=== PATIENT | female | born 1950 | race Caucasian/White ===

== ENCOUNTER 2018-12-09 11:54 | Inpatient (IN) ==
--- NOTE | 2018-12-09 14:11 | Diag Imaging Result Doc PS360 ---
EXAM: CHEST-2 VIEWS INDICATION: SOB TECHNIQUE: 2 views COMPARISON: 12/06/2018 FINDINGS: A calcified granuloma and mild stable scarring involving the lingula is unchanged. The lungs are clear, otherwise. There is no discrete pleural fluid collection or pneumothorax. The cardiomediastinal silhouette and central vasculature are grossly unremarkable. IMPRESSION: Stable chest with no evidence of acute pathology. Electronically signed by Madhu Curtis 12/09/2018 2:09 PM
[2018-12-09] MEDS: TUSSIONEX LIQUID PO PRN (14:17)
[2018-12-09 14:25] LABS: ALLEN TEST NO; BE 3.4 mmoll (-3.0-3.0); BLOOD TYPE ARTERIAL; HCO3-(ACT) 27.5 mmoll (20.0-26.0); METHB 1.1 % (0.0-1.5); O2(CT) 19.5 mL/dL (15.0-23.0); O2HB 95.4 % (95.0-99.0); PCO2(98.6) 36 mmHg (35-45); PO2(98.6) 74 mmHg (60-100); SAMPLE BLOOD; THB 14.5 g/dL (11.5-17.4); pH(98.6) 7.48 (7.35-7.45)
[2018-12-09 14:26] LABS: MODALITY ROOM AIR
[2018-12-09 15:01] LABS: AGAP 13; ALB/GLOB RATIO 1.5; ALBUMIN 4.2 g/dL (3.5-5.0); ALKALINE PHOSPHATASE 88 U/L (32-104); BUN 14 mg/dL (8-22); CALCIUM 9.6 mg/dL (8.8-10.2); CHLORIDE 106 mmol/L (98-107); COSMO 288; CREATININE 0.6 mg/dL (0.5-0.9); ESTIMATED GFR > 60; GLUCOSE 79 mg/dL (70-104); GOT 37 U/L (10-30); GPT 52 U/L (10-36); POTASSIUM 3.6 mmol/L (3.5-5.1); SODIUM 145 mmol/L (136-145); TCO2 26 mmol/L (25-35); TOTAL BILIRUBIN 0.26 mg/dL (0.20-1.00)
[2018-12-09 15:17] LABS: CK-MB 4.04 ng/mL (0.0-5.0)
[2018-12-09] MEDS: DUONEB (A & A) INH PRN ×2 (15:47→20:09)
[2018-12-09] MEDS: TORADOL IV PRN ×2 (16:26→23:06)
[2018-12-09] MEDS: PROTONIX IV SCH (16:26)
[2018-12-09] MEDS: LEVAQUIN 500 MG/D5W 500 MG/100 ML IVPB IV SCH (16:26)
[2018-12-09] MEDS: LOVENOX SUBQ SCH (16:27)
[2018-12-09] MEDS: SOLU-MEDROL IV SCH ×2 (16:28→21:45)
[2018-12-09] MEDS: NS 1,000 ML IV SCH (16:30)
[2018-12-09] MEDS ORDERED: NEURONTIN PO SCH (17:00)
[2018-12-09] MEDS: HUMALOG SUBQ SCH ×2 (17:11→21:46)
[2018-12-09 18:38] LABS: URINE SOURCE CLEAN CATCH
[2018-12-09 18:53] LABS: BILIRUBIN URINE NEGATIVE (NEGATIVE); BLOOD URINE SMALL (NEGATIVE); COLOR YELLOW; GLUCOSE URINE NEGATIVE (NEGATIVE); KETONE URINE TRACE mg/dL (NEGATIVE); LEUKOCYTES URINE SMALL (NEGATIVE); NITRITE URINE NEGATIVE (NEGATIVE); PROTEIN URINE 70 mg/dL (NEGATIVE); TURBIDITY URINE CLEAR (CLEAR); UROBILINOGEN URINE 2 mg/dL (NORMAL)
[2018-12-09 18:55] LABS: UR EPITHELIAL CELLS <10 /HPF (<10); URINE BACTERIA NEGATIVE /HPF; URINE RBC <10 /HPF (<10); URINE WBC <10 /HPF (<10)
[2018-12-09 19:00] LABS: URINE CRYSTALS CA OXALATE PRESENT
[2018-12-09] MEDS: DULERA 100 MCG/5 MCG INHALER INH SCH (20:09)
[2018-12-09] MEDS: NEURONTIN PO SCH (21:45)
[2018-12-09] MEDS: TESSALON PO SCH (21:46)
--- NOTE | 2018-12-09 23:37 | HISTORY AND PHYSICAL ---
CHIEF COMPLAINT: Incessant cough, wheezing, shortness of breath. HISTORY OF PRESENT ILLNESS: She is a 68-year-old, white female with a known history of asthma due to allergies. Was seen in the ER a few days ago. Sent home on outpatient treatment. She came to my office with incessant cough, wheezing, shortness of breath. No chest pain. Basically admitted to the hospital for acute asthma exacerbation. PAST MEDICAL HISTORY: 1. Bronchial asthma due to extrinsic allergies. 2. Metabolic syndrome. Type 2 diabetes. 3. Hiatal hernia. 4. Hyperlipidemia. 5. Common variable immune deficiency (CVID). 6. Chronic back pain. 7. Migraine headaches. 8. TUGSE syndrome of right tongue. 9. Type 2 diabetes. 10. 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 PAST SURGICAL HISTORY: Cholecystectomy, partial hysterectomy. Tubal ligation. Right lacrimal duct excision. Excision of the TUGSE of the lateral tongue in 2017. ALLERGIES: Reported to penicillin and latex, adhesive tape. 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 No smoking. No alcohol. FAMILY HISTORY: Father of heart attack at 60. Mom of stroke at 87. HEALTH MAINTENANCE: Flu vaccine 2018, pneumococcal 08/28/2017. Last mammography 2016. Last stress test 10/27/2016. MEDICATIONS: Effexor 75 daily. Albuterol nebulizers q.6. Gabapentin 300 p.o. daily. Singulair 10 daily, Protonix 40 daily. Dulera 1 puff 2 puffs b.i.d., gabapentin 600 at bedtime. Xyzal 5 mg daily. REVIEW OF SYSTEMS: HEENT: No headache. No vision problem. No sore throat. No earache. Neck: No goiter. No lymphadenopathy. No bruit. Cardiopulmonary: Cough, shortness of breath, wheezing. GI: No nausea, vomiting, abdominal pain. No altered bowel habits. Rectal: No bleeding per rectum. : No history of hesitancy, frequency, dysuria, hematuria. Extremities: No swelling of legs. No joint pain. Neurologic: No focal symptoms or weakness. PHYSICAL EXAMINATION: VITAL SIGNS: Temperature is 98.4, pulse is 93, blood pressure is 160/95. 5 feet 2 inches, 154 pounds. HEENT: Atraumatic, normocephalic. Pupils equal, react to light. TMs are normal. Nose and throat within normal limits. NECK: Supple. No lymphadenopathy. CHEST: Bilateral wheezing. CARDIAC: Distant heart sounds. ABDOMEN: Belly is soft, nontender. Good bowel sounds. EXTREMITIES: No peripheral edema, cyanosis. NEUROLOGIC: No obvious neurological deficits. INVESTIGATIONS: ABG: pH is 7.45, pCO2 of 36, pO2 of 74, on room air. SMA-7 is normal. Glucose 310. Elevated liver function tests. CK-MB index was negative. Negative troponin. ProBNP was normal. Urinalysis is clear. Chest x-ray stable chest. EKG normal sinus, sinus tachycardia, left atrial enlargement. Left anteriorFasicular block. ASSESSMENT AND PLAN: 1. A 68-year-old white female admitted to the hospital with acute asthma exacerbation, failure of outpatient treatment. Plan is IV steroids, bronchodilators, Singulair. IV antibiotics with Levaquin. 2. For cough suppressant, we will give her Tessalon and potassium. 3. Deep vein thrombosis/gastrointestinal prophylaxis as per order sheet. 4. Type 2 diabetes. Continue on sliding scale with insulin coverage. 5. Gentle hydration with IV fluids. 6. Reconcile home medications. 7. Vaccinations were up-to-date. Flu and pneumococcal vaccine. We will follow up. cc: eHrve Weinstein MD MTDPam
[2018-12-10] MEDS: DUONEB (A & A) INH PRN ×4 (03:20→21:40)
[2018-12-10] MEDS: SOLU-MEDROL IV SCH ×3 (06:32→21:21)
[2018-12-10] MEDS: TUSSIONEX LIQUID PO PRN ×2 (06:32→23:27)
[2018-12-10] MEDS: HUMALOG SUBQ SCH ×3 (06:32→16:44)
[2018-12-10] MEDS: NS 1,000 ML IV SCH ×3 (06:32→21:19)
[2018-12-10] MEDS: EFFEXOR XR PO SCH (08:13)
[2018-12-10] MEDS: ZYRTEC PO SCH (08:13)
[2018-12-10] MEDS: NEURONTIN PO SCH ×2 (08:13→21:21)
[2018-12-10] MEDS: SINGULAIR PO SCH (08:13)
[2018-12-10] MEDS: TESSALON PO SCH ×3 (08:13→21:21)
[2018-12-10] MEDS ORDERED: TESSALON PO SCH (09:00)
[2018-12-10] MEDS: TORADOL IV PRN ×3 (09:39→23:30)
[2018-12-10] MEDS: DULERA 100 MCG/5 MCG INHALER INH SCH (10:58)
[2018-12-10] MEDS: SODIUM CHLORIDE 0.9% INJ SCH (13:45)
[2018-12-10] MEDS: LOVENOX SUBQ SCH (13:45)
[2018-12-10] MEDS: PROTONIX IV SCH (13:45)
[2018-12-10] MEDS: LEVAQUIN 500 MG/D5W 500 MG/100 ML IVPB IV SCH (13:45)
--- NOTE | 2018-12-10 18:18 | PROGRESS NOTE ---
DATE: 12/10/2018 SUBJECTIVE: The patient is still coughing and wheezing. Complains of dysuria. No chest pain. OBJECTIVE: On exam, temperature is 98 degrees, pulse is 85, blood pressure 134/71. HEENT exam within normal limits. Neck is supple. Chest: Bilateral air entry, wheezing. Heart sounds are very distant. Belly is soft, nontender. Good bowel sounds. No neurological deficits. ASSESSMENT AND PLAN: 1. Acute asthma exacerbation. Continue on present treatment with intravenous steroids, intravenous antibiotics and bronchodilators. 2. Deep vein thrombosis and gastrointestinal prophylaxis as per order sheet. 3. Continue intravenous fluids. 4. Dysuria. Follow up on urine cultures. So far is negative. 5. Reconcile home medicines. 6. Type 2 diabetes. Check the A1c in the morning, and sliding scale with insulin coverage. Level of documentation 25 minutes. cc: Herve Weinstein MD
[2018-12-11] MEDS: NS 1,000 ML IV SCH ×3 (02:07→13:31)
[2018-12-11] MEDS: HUMALOG SUBQ SCH ×6 (02:08→20:25)
[2018-12-11] MEDS: SOLU-MEDROL IV SCH ×4 (05:53→20:45)
[2018-12-11] MEDS: TESSALON PO PRN ×3 (05:53→22:14)
[2018-12-11] MEDS: DULERA 100 MCG/5 MCG INHALER INH SCH ×3 (06:03→20:52)
[2018-12-11 06:29] LABS: HEMOGLOBIN A1C 7.3 % (4.8-6.0)
[2018-12-11] MEDS: DUONEB (A & A) INH PRN ×3 (07:29→20:53)
[2018-12-11] MEDS: ZYRTEC PO SCH (09:32)
[2018-12-11] MEDS: SINGULAIR PO SCH (09:32)
[2018-12-11] MEDS: NEURONTIN PO SCH ×2 (09:32→20:27)
[2018-12-11] MEDS: EFFEXOR XR PO SCH (09:32)
[2018-12-11] MEDS: TORADOL IV PRN ×3 (09:38→22:14)
[2018-12-11] MEDS: TUSSIONEX LIQUID PO PRN ×2 (11:50→23:50)
--- NOTE | 2018-12-11 12:29 | PROGRESS NOTE ---
DATE: 12/11/2018 Ms. Veras has constipation which she claims is because of the steroids that she is on. She had acute exacerbation of an asthma attack. Her vital signs are stable. She is afebrile. Blood pressure is 155/84. She is asking for more prune juice which we will definitely increase the prune juice intake. She is on methylprednisone 60 mg IV every 8 hours. Besides this she is getting her other regular medications. We will continue with the current management. Her lab data showed that her blood gases were satisfactory; pH is 7.48, pCO2 36, and pO2 74. -6 cc: MD Herve Villegas MD
[2018-12-11] MEDS: LEVAQUIN 500 MG/D5W 500 MG/100 ML IVPB IV SCH (13:32)
[2018-12-11] MEDS: LOVENOX SUBQ SCH (13:35)
[2018-12-11] MEDS: SODIUM CHLORIDE 0.9% INJ SCH (13:35)
[2018-12-11] MEDS: PROTONIX IV SCH (13:35)
[2018-12-12] MEDS: TESSALON PO PRN ×2 (04:54→18:05)
[2018-12-12] MEDS: SOLU-MEDROL IV SCH ×2 (04:55→18:05)
[2018-12-12] MEDS: TORADOL IV PRN ×2 (04:55→10:39)
[2018-12-12] MEDS: NS 1,000 ML IV SCH (05:16)
[2018-12-12] MEDS: HUMALOG SUBQ SCH ×5 (05:57→22:06)
[2018-12-12] MEDS: EFFEXOR XR PO SCH (09:19)
[2018-12-12] MEDS: NEURONTIN PO SCH ×2 (09:19→22:06)
[2018-12-12] MEDS: SINGULAIR PO SCH (09:19)
[2018-12-12] MEDS: ZYRTEC PO SCH (09:19)
[2018-12-12] MEDS: DULERA 100 MCG/5 MCG INHALER INH SCH ×2 (09:41→21:00)
[2018-12-12] MEDS: TUSSIONEX LIQUID PO PRN (12:03)
[2018-12-12] MEDS ORDERED: LINZESS PO ONE (12:08)
--- NOTE | 2018-12-12 12:23 | PROGRESS NOTE ---
DATE: 12/12/2018 Ms. Veras, who is a 68-year-old, white female, has asthma exacerbation. She has severe constipation and a persistent cough. Breathing is better with steroids. She is on Tussionex as well as Tessalon Perles for cough. We will get her Linzess for constipation today. cc: MD Herve iVllegas MD
[2018-12-12] MEDS: PROTONIX IV SCH (14:11)
[2018-12-12] MEDS: LEVAQUIN 500 MG/D5W 500 MG/100 ML IVPB IV SCH (14:11)
[2018-12-12] MEDS: SODIUM CHLORIDE 0.9% INJ SCH (14:11)
[2018-12-12] MEDS: LOVENOX SUBQ SCH (14:12)
[2018-12-12] MEDS: DUONEB (A & A) INH PRN ×2 (15:55→21:00)
[2018-12-13] MEDS: HUMALOG SUBQ SCH ×4 (06:27→21:31)
[2018-12-13] MEDS: SOLU-MEDROL IV SCH ×2 (06:27→18:14)
[2018-12-13] MEDS: NS 1,000 ML IV SCH (06:35)
[2018-12-13] MEDS: DULERA 100 MCG/5 MCG INHALER INH SCH ×2 (09:21→21:30)
[2018-12-13] MEDS: SINGULAIR PO SCH (10:10)
[2018-12-13] MEDS: NEURONTIN PO SCH ×2 (10:10→21:31)
[2018-12-13] MEDS: EFFEXOR XR PO SCH (10:10)
[2018-12-13] MEDS: ZYRTEC PO SCH (10:11)
[2018-12-13] MEDS: MIRALAX PO SCH (12:15)
[2018-12-13] MEDS: TUSSIONEX LIQUID PO PRN ×2 (12:23→23:29)
[2018-12-13] MEDS: TORADOL IV PRN ×2 (12:34→23:28)
[2018-12-13] MEDS: LOVENOX SUBQ SCH (14:45)
[2018-12-13] MEDS: LEVAQUIN 500 MG/D5W 500 MG/100 ML IVPB IV SCH (14:45)
[2018-12-13] MEDS: SODIUM CHLORIDE 0.9% INJ SCH (14:46)
[2018-12-13] MEDS: PROTONIX IV SCH (14:46)
[2018-12-13] MEDS: TESSALON PO PRN ×2 (14:58→23:28)
[2018-12-13] MEDS: DUONEB (A & A) INH PRN (15:34)
[2018-12-13] MEDS: GLUCOPHAGE PO SCH (18:12)
--- NOTE | 2018-12-13 22:38 | PROGRESS NOTE ---
DATE: 12/13/2018 SUBJECTIVE: Events noted over the weekend, still coughing and wheezing. Constipation and dysuria are improving. OBJECTIVE: Vital signs: Temperature is 98.1 degrees, pulse is 55, blood pressure is 140/81. HEENT exam: Within normal limits. Neck: Supple. No lymphadenopathy. Chest: Wheezing. Heart sounds are regular. Abdomen: Belly is soft, nontender. No obvious deficits. INVESTIGATIONS: A1c 7.3. ASSESSMENT AND PLAN: 1. Acute asthma not taking the immunotherapy shots. Decrease IV steroids and continue present treatment. 2. Type 2 diabetes. Metformin 500 p.o. b.i.d. 3. Dysuria. Follow up on urine cultures, negative. 4. Constipation due to Tussionex. We will give MiraLAX. 5. Continue present treatment and deep venous thrombosis prophylaxis with Lovenox and follow up. LEVEL OF DOCUMENTATION: 25 minutes. cc: Herve Weinstein MD
[2018-12-14] MEDS: HUMALOG SUBQ SCH (06:46)
[2018-12-14] MEDS: SOLU-MEDROL IV SCH (06:46)
[2018-12-14] MEDS: MIRALAX PO SCH (08:08)
[2018-12-14] MEDS: GLUCOPHAGE PO SCH (08:09)
[2018-12-14] MEDS: ZYRTEC PO SCH (08:09)
[2018-12-14] MEDS: NEURONTIN PO SCH (08:09)
[2018-12-14] MEDS: EFFEXOR XR PO SCH (08:09)
[2018-12-14] MEDS: SINGULAIR PO SCH (08:09)
[2018-12-14 08:13] VITALS: BP 159/69
--- NOTE | 2018-12-18 07:57 | DISCHARGE SUMMARY ---
ADMISSION DATE: 12/09/2018 DISCHARGE DATE: 12/14/2018 DISCHARGING DIAGNOSIS: Acute asthma exacerbation. SECONDARY DIAGNOSES: 1. Asthmatic bronchitis, due to seasonal allergies. 2. Type 2 diabetes. A1c is 7.2. 3. Metabolic syndrome. 4. Hiatal hernia. 5. Hyperlipidemia. 6. Migraine headaches. 7. History of internal jugular vein thrombosis, due to central line. 8. 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 BRIEF HISTORY: Please see the H and P that was done on 12/09/2018. In brief, she is 68-year-old white female with a known history of asthma due to allergies. Stopped taking the allergy shots and on Singulair and inhalers. Also not taking the immunoglobulins. It was prescribed before by Dr. Villatoro. Currently under the care of Dr. Pickering. Came in with incessant cough, shortness of breath, and wheezing. HOSPITAL COURSE: 1. Patient was given oxygen, bronchodilators, IV steroids, IV antibiotics. 2. Blood sugars were running high. Started on metformin. 3. Complains of dysuria. Followup on urine cultures were negative for infection. 4. Constipation. Was given laxatives. 5. The rest of the hospital course was uneventful. LABS: ABGs: pH is 7.48, pCO2 36, pO2 74, bicarb 27 on room air. A1c 7.3. SMA 7 is normal. AST and ALT slightly high. CK MB index negative. Troponin was negative. ProBNP 48. X-RAYS: Chest x-ray: Stable chest with no evidence of acute pathology. DISCHARGE INSTRUCTIONS: The patient was discharged home with the following instructions: 1. The patient did receive pneumococcal vaccine 13 on 08/28/2017. 2. Effexor 75 mg daily. 3. Albuterol inhaler q.6 as needed with the ProAir nebulizers as described, albuterol 1 puff q.6. 4. Gabapentin 300 daily. 5. Singulair 10 mg daily. 6. Protonix 40 daily. 7. Dulera 100/5 mcg 2 puffs inhaled b.i.d. 8. Gabapentin 600 at bedtime. 9. Xyzal 5 mg daily. 10. Levaquin 500 daily for 7 days. 11. Medrol Dosepak. 12. Metformin 500 p.o. b.i.d. 13. Follow up in my office in 10 days. cc: Herve Weinstein MD
== END 2018-12-14 09:53 | disposition home or self-care (01) | DRG 202 ==
LOC: DIRADM 11:54 → 4N 12:44
PROVIDERS: ADMIT Internal Medicine; ATTEND Internal Medicine
CPT/HCPCS: 71020; 71046; 80048; 80053; 81001; 82550; 82553; 82805; 82948; 83036; 83880; 84484; 87088; 87275; 87276; 87804; 93005; 94640; 94761; 99283; A9270; C9113; J1650; J1815; J1885; J1956; J2920; J2930; J7030; J7506; J7512; S0164; XXXXX

== ENCOUNTER 2019-07-19 06:51 | Observation (INO) ==
--- NOTE | 2019-06-29 17:20 | EKG Report ---
Test Performed on : 06/29/2019 5:02:52 PM Test Reason : PAT Blood Pressure : / mmHG Vent. Rate : 087 BPM Atrial Rate : 087 BPM P-R Int : 150 ms QRS Dur : 092 ms QT Int : 394 ms P-R-T Axes : 056 -46 035 degrees QTc Int : 474 ms Normal sinus rhythm. Left anterior fascicular block Cannot rule out Inferior infarct (masked by fascicular block?) , age undetermined Cannot rule out Anterior infarct , age undetermined Abnormal ECG When compared with ECG of 06-DEC-2018 20:15, Minimal criteria for Inferior infarct are now present Confirmed by Jacquelin GONGORA, Artemio Alcala ([id number]) on 07/01/2019 6:58:29 AM
[2019-06-29 17:33] LABS: URINE SOURCE CLEAN CATCH
[2019-06-29 17:41] LABS: BASO# 0.06 X1000 (0.0-0.2); EOS# 0.27 X1000 (0.0-0.7); EOS% 4.3 % (0.0-10.0); HEMOGLOBIN 14.2 g/dL (12.0-16.0); IMM GRAN# 0.05 X1000 (0.0-0.04); IMM GRAN% 0.8 % (0.0-0.5); LYMPH# 2.12 X1000 (1.2-3.4); LYMPH% 33.6 % (20.5-51.1); MCH 28.5 PG (27-31); MCHC 31.6 g/dL (33-37); MCV 90.2 FL (81-99); MONO# 0.51 X1000 (0.11-0.59); MONO% 8.1 % (1.7-9.3); MPV 9.1 FL (7.4-10.4); NEUT% 52.2 % (42.2-75.2); PLT 204 X1000 (130-400); RBC 4.99 XMIL (4.2-5.4); RDW 13.4 % (11.5-14.5); WBC 6.31 X1000 (4.8-10.8)
[2019-06-29 17:42] LABS: BILIRUBIN URINE NEGATIVE (NEGATIVE); BLOOD URINE NEGATIVE (NEGATIVE); COLOR YELLOW; GLUCOSE URINE NEGATIVE (NEGATIVE); KETONE URINE NEGATIVE (NEGATIVE); LEUKOCYTES URINE TRACE (NEGATIVE); NITRITE URINE NEGATIVE (NEGATIVE); PH URINE 5.5; PROTEIN URINE NEGATIVE (NEGATIVE); SP GRAVITY URINE 1.016; TURBIDITY URINE CLEAR (CLEAR); UR EPITHELIAL CELLS <10 /HPF (<10); URINE BACTERIA NEGATIVE /HPF; URINE RBC <10 /HPF (<10); URINE WBC <10 /HPF (<10); UROBILINOGEN URINE NORMAL (NORMAL)
[2019-06-29 17:44] LABS: INR 0.98; PROTIME 13.1 Seconds (11.0-16.0)
[2019-06-29 17:45] LABS: PTT 26.3 Seconds (22.3-41.8)
[2019-06-29 17:46] LABS: HEMOGLOBIN A1C 6.4 % (4.8-6.0)
[2019-06-29 18:00] LABS: AGAP 12; BUN 12 mg/dL (8-22); CALCIUM 9.2 mg/dL (8.8-10.2); CHLORIDE 102 mmol/L (98-107); COSMO 279; CREATININE 0.6 mg/dL (0.5-0.9); ESTIMATED GFR > 60; GLUCOSE 102 mg/dL (70-104); POTASSIUM 3.5 mmol/L (3.5-5.1); SODIUM 140 mmol/L (136-145); TCO2 26 mmol/L (25-35)
[2019-07-19] MEDS ORDERED: PEPCID ONE (07:18)
[2019-07-19] MEDS ORDERED: LYRICA ONE (07:18)
[2019-07-19] MEDS ORDERED: KEFZOL 1 GM/D5W 1 GM/50 ML IVPB ONE (07:18)
[2019-07-19] MEDS ORDERED: COLACE ONE (07:18)
[2019-07-19] MEDS ORDERED: CELEBREX ONE (07:18)
[2019-07-19] MEDS ORDERED: LR 1,000 ML ONE (07:19)
[2019-07-19] MEDS: REGLAN ONE ×2 (07:20→13:21)
[2019-07-19] MEDS ORDERED: MARCAINE 0.25% PF ONE (08:17)
[2019-07-19] MEDS ORDERED: DURAMORPH ONE (08:17)
[2019-07-19] MEDS ORDERED: VANCOMYCIN ONE (08:18)
[2019-07-19] MEDS ORDERED: SODIUM CHLORIDE 0.9% ONE (08:18)
[2019-07-19] MEDS ORDERED: TORADOL ONE (08:18)
[2019-07-19] MEDS ORDERED: EXPAREL 1.3% ONE (08:18)
[2019-07-19] MEDS ORDERED: VERSED ONE (08:41)
[2019-07-19] MEDS ORDERED: FENTANYL ONE (08:41)
[2019-07-19] MEDS ORDERED: DIPRIVAN 1% ONE ×3 (08:42→10:14)
[2019-07-19] MEDS ORDERED: DECADRON ONE (09:41)
[2019-07-19] MEDS ORDERED: ZOFRAN ONE (09:41)
[2019-07-19] MEDS: CYKLOKAPRON 1,000 MG/NS 2,000 MG/200 ML IVPB ONE ×3 (10:10→13:21)
[2019-07-19] MEDS ORDERED: NS 1,000 ML ONE (10:56)
--- NOTE | 2019-07-19 11:00 | OPERATIVE NOTE ---
PROCEDURE DATE: 07/19/2019 PREOPERATIVE DIAGNOSIS: Avascular necrosis with degenerative joint disease of the right knee. POSTOPERATIVE DIAGNOSIS: Avascular necrosis with degenerative joint disease of the right knee. PROCEDURE PERFORMED: Right total knee replacement. SURGEON: Karime Mary MD. SAUSAGE MACHINE OPERATOR: PURNIMA Fofana. Mr. Cantor was necessary for proper retraction and manipulation of the knee. ANESTHESIA: Spinal. COMPLICATIONS: None. PROCEDURE IN DETAIL: This 69-year-old female with painful DJD of the knee and avascular necrosis presents for surgical knee replacement. Risks, benefits, and no guarantees were discussed, and she is willing to proceed. She was taken to the operating room and satisfactory anesthesia obtained. The right knee was prepped and draped in the usual sterile fashion. A time-out was taken to confirm operative site, procedure, and patient. The leg was wrapped with an Esmarch and tourniquet inflated to 300 mmHg. A midline incision was made over the front of the knee, followed by a quad tendon sparing arthrotomy. The patella was everted and resurfaced with freehand technique. With the patella subluxed laterally, the knee was flexed. An intramedullary hole was made in the distal femur and the distal femoral cutting block secured in 5 degrees of valgus. The distal femoral resection was made and the femur sized to a DePuy Nurixune size 3 femoral implant. The four-in-one block was secured, and the anterior, posterior, and chamfer cuts were sequentially made. Any remaining osteophytes were debrided from the femur. The knee was flexed and a PCL retractor placed behind the tibia to protect the neurovascular bundle and PCL. The tibial cutting block was secured and the tibial resection made. Flexion and extension gaps were checked and roughly equal with a 6 mm spacer. The tibia was sized to a size 3 tibial tray. A trial reduction was performed with a size 3 tibial tray, a size 3 cruciate retaining femoral component, and a 6 mm CR poly with good range of motion and stability. The patella was sized to a size 32 medialized dome patella. Drill holes were placed for the patellar implant as well as the femoral implant and the bony surfaces thoroughly irrigated after removal of the trial implants. The cement with a gram of vancomycin was then utilized to cement a DePuy size 3 rotating platform tibial tray, a size 3 standard width CR right femoral component, and a 32 medialized dome patella. Excess cement was removed with a [place] elevator. While the cement cured, the joint capsule was injected with Exparel and a Hemovac drain placed. Afterwards, a size 3 CR poly with a 6 mm thickness was inserted in the tibial tray and the knee reduced. Final range of motion was 0 to 130 degrees with midline patellar tracking. The arthrotomy was copiously irrigated and closed over the drain with #1 Vicryl in the arthrotomy, 2-0 Vicryl in the subcutaneous, and a Dermabond skin closure. Sterile dressings were placed over this. The patient recovered from anesthesia and transferred to the recovery room in stable condition. Tourniquet was released with good return of capillary blood flow. No intraoperative complications were noted. Instrument count and sponge count were correct at the time of closure. cc: Madhu Mary MD
[2019-07-19] MEDS: DILAUDID ONE ×2 (11:14→11:18)
[2019-07-19 11:18] LABS: URINE SOURCE CATH
[2019-07-19] MEDS ORDERED: SODIUM CHLORIDE 0.9% 10 ML ONE (11:21)
[2019-07-19] MEDS ORDERED: PHENERGAN ONE (11:21)
[2019-07-19 11:24] LABS: BILIRUBIN URINE NEGATIVE (NEGATIVE); BLOOD URINE NEGATIVE (NEGATIVE); COLOR YELLOW; GLUCOSE URINE NEGATIVE (NEGATIVE); KETONE URINE NEGATIVE (NEGATIVE); LEUKOCYTES URINE NEGATIVE (NEGATIVE); NITRITE URINE NEGATIVE (NEGATIVE); PROTEIN URINE TRACE mg/dL (NEGATIVE); SP GRAVITY URINE 1.029; TURBIDITY URINE CLEAR (CLEAR); UROBILINOGEN URINE NORMAL (NORMAL)
[2019-07-19 11:25] LABS: UR EPITHELIAL CELLS <10 /HPF (<10); URINE BACTERIA NEGATIVE /HPF; URINE RBC <10 /HPF (<10); URINE WBC <10 /HPF (<10)
--- NOTE | 2019-07-19 11:46 | Diag Imaging Result Doc PS360 ---
EXAM: KNEE 1-2 VIEWS-RIGHT - 07/19/2019 HISTORY: post op TECHNIQUE: Portable right knee two views COMPARISON: None. FINDINGS: There are postsurgical changes of recent right total knee prosthesis placement. Alignment appears satisfactory. There are no complicating features identified. IMPRESSION: Satisfactory postoperative exam. Electronically signed by Irineo Inman 07/19/2019 11:44 AM
[2019-07-19] MEDS ORDERED: OXY IR PO PRN (12:45)
[2019-07-19] MEDS ORDERED: ZOFRAN ODT PO PRN (12:45)
[2019-07-19] MEDS ORDERED: ZOFRAN IV PRN (12:45)
[2019-07-19] MEDS ORDERED: MORPHINE IV PRN ×2 (12:45)
[2019-07-19] MEDS: ULTRAM PO SCH ×2 (13:39→20:02)
[2019-07-19] MEDS: OXY IR PO PRN ×3 (13:40→21:39)
[2019-07-19] MEDS ORDERED: ULTRAM PO PRN (14:10)
[2019-07-19] MEDS: DULERA 100 MCG/5 MCG INHALER INH SCH ×2 (15:46→20:01)
[2019-07-19] MEDS: ALBUTEROL NEB INH SCH ×3 (15:48→22:00)
[2019-07-19] MEDS: GLUCOPHAGE PO SCH (16:52)
[2019-07-19] MEDS: NEURONTIN PO SCH ×2 (16:52→21:40)
[2019-07-19] MEDS: KEFZOL 1 GM/D5W 1 GM/50 ML IVPB IV SCH (17:08)
[2019-07-19] MEDS: NS 1,000 ML IV SCH (17:09)
--- NOTE | 2019-07-19 18:14 | ORTHOPAEDICS PROGRESS NOTE ---
DATE: 07/19/2019 SUBJECTIVE DATA: Ms. Veras is seen postop day 0 for right total knee arthroplasty. She reports she is doing well at this time. She states her pain level is 2/10. Family is presently at bedside. OBJECTIVE DATA: Has good sensation in right lower extremity. The bandages are clean and dry. There are good pedal pulses. There is good capillary refill in toes. There is no active bleeding. Vital signs are stable. ASSESSMENT: Degenerative joint disease, right knee, with right total knee arthroplasty. PLAN: We will plan on keeping Ms. Veras in the hospital overnight tonight. We will check on her in the morning to see how she is doing. Dictated by PURNIMA Fofana for Madhu Mary MD cc: PURNIMA Fofana MD
[2019-07-19] MEDS: PATIENT'S OWN MED PO SCH (20:01)
[2019-07-19] MEDS ORDERED: MAALOX PLUS LIQUID PO PRN (21:15)
[2019-07-19] MEDS ORDERED: PROTONIX PO ONE (21:16)
[2019-07-19] MEDS: PERIDEX MT SCH (21:39)
[2019-07-19] MEDS: COLACE PO SCH (21:40)
[2019-07-19] MEDS: CELEBREX PO SCH (21:40)
--- NOTE | 2019-07-19 22:05 | EKG Report ---
Test Performed on : 07/19/2019 8:36:56 PM Test Reason : TOTAL RIGHT KNEE Blood Pressure : / mmHG Vent. Rate : 093 BPM Atrial Rate : 093 BPM P-R Int : 156 ms QRS Dur : 092 ms QT Int : 374 ms P-R-T Axes : 044 -45 024 degrees QTc Int : 465 ms Sinus rhythm. with premature supraventricular complexes. Left anterior fascicular block Possible Anterolateral infarct (cited on or before 29-JUN-2019) Abnormal ECG When compared with ECG of 29-JUN-2019 17:02, premature supraventricular complexes. are now present Questionable change in initial forces of Lateral leads Confirmed by Jacquelin GONGORA, Artemio Alcala ([id number]) on 07/21/2019 8:58:13 AM
[2019-07-20] MEDS: ULTRAM PO SCH ×4 (01:14→17:44)
[2019-07-20] MEDS: KEFZOL 1 GM/D5W 1 GM/50 ML IVPB IV SCH (01:14)
[2019-07-20] MEDS: ALBUTEROL NEB INH SCH ×4 (03:19→22:00)
[2019-07-20] MEDS: OXY IR PO PRN ×5 (03:50→21:03)
[2019-07-20 06:04] LABS: HEMATOCRIT 38.3 % (37.0-47.0); HEMOGLOBIN 11.9 g/dL (12.0-16.0)
[2019-07-20 06:19] LABS: AGAP 17; BUN 13 mg/dL (8-22); CALCIUM 8.2 mg/dL (8.8-10.2); CHLORIDE 103 mmol/L (98-107); COSMO 285; CREATININE 0.7 mg/dL (0.5-0.9); ESTIMATED GFR > 60; GLUCOSE 231 mg/dL (70-104); POTASSIUM 4.1 mmol/L (3.5-5.1); SODIUM 139 mmol/L (136-145); TCO2 19 mmol/L (25-35)
[2019-07-20] MEDS: PROTONIX PO SCH (06:27)
[2019-07-20] MEDS: PERIDEX MT SCH ×2 (09:52→21:04)
[2019-07-20] MEDS: ZYRTEC PO SCH (09:52)
[2019-07-20] MEDS: ASPIRIN PO SCH (09:52)
[2019-07-20] MEDS: GLUCOPHAGE PO SCH ×2 (09:53→17:44)
[2019-07-20] MEDS: EFFEXOR XR PO SCH (09:53)
[2019-07-20] MEDS: CELEBREX PO SCH ×2 (09:53→21:04)
[2019-07-20] MEDS: SINGULAIR PO SCH (09:53)
[2019-07-20] MEDS: PEPCID PO SCH (09:53)
[2019-07-20] MEDS: COLACE PO SCH ×2 (09:53→21:03)
[2019-07-20] MEDS: PATIENT'S OWN MED PO SCH ×3 (10:02→20:30)
[2019-07-20] MEDS: NEURONTIN PO SCH ×3 (10:02→21:04)
[2019-07-20] MEDS: DULERA 100 MCG/5 MCG INHALER INH SCH ×2 (10:56→21:30)
[2019-07-20] MEDS: MORPHINE IV PRN ×3 (11:10→19:45)
--- NOTE | 2019-07-20 13:30 | ORTHOPAEDICS PROGRESS NOTE ---
DATE: 07/20/2019 SUBJECTIVE DATA: Ms. Veras is seen postop day 1 of her right total knee arthroplasty. She reports her pain is a 7/10 at this time. She states she did get up and walk with Physical Therapy around the nurse's station. She reports some nausea but it has improved. She states her blood sugar has been up and is worried about that. OBJECTIVE DATA: Extremities: Has good sensation to the right lower extremity. The bandages are clean and dry. There is negative Homans sign. There are good pedal pulses. There is good capillary refill in the toes. Vital signs: Have been stable. ASSESSMENT: Degenerative joint disease, right knee with right total knee arthroplasty and nausea and hyperglycemia. PLAN: We plan to keep Ms. Veras in the hospital one more night due to her comorbidities. We will give her some insulin and see if we can get her blood sugar down. We will likely discharge her home tomorrow with home therapy. Dictated by PURNIMA Fofana for Madhu Mary MD cc: PURNIMA Fofana MD
[2019-07-20] MEDS: NS 1,000 ML IV SCH ×2 (17:47→18:57)
[2019-07-20] MEDS: HUMULIN R SUBQ SCH ×2 (20:30→21:04)
[2019-07-21] MEDS: OXY IR PO PRN ×4 (00:21→18:23)
[2019-07-21] MEDS: ULTRAM PO SCH ×4 (00:49→23:43)
[2019-07-21] MEDS: ALBUTEROL NEB INH SCH ×4 (03:36→21:30)
[2019-07-21] MEDS: PROTONIX PO SCH (06:39)
[2019-07-21] MEDS: HUMULIN R SUBQ SCH ×5 (06:44→23:25)
[2019-07-21 07:27] LABS: HEMATOCRIT 41.4 % (37.0-47.0)
[2019-07-21] MEDS: ASPIRIN PO SCH (08:18)
[2019-07-21] MEDS: SINGULAIR PO SCH (08:18)
[2019-07-21] MEDS: NEURONTIN PO SCH ×3 (08:18→23:44)
[2019-07-21] MEDS: GLUCOPHAGE PO SCH ×2 (08:18→18:21)
[2019-07-21] MEDS: ZYRTEC PO SCH (08:18)
[2019-07-21] MEDS: EFFEXOR XR PO SCH (08:19)
[2019-07-21] MEDS: PEPCID PO SCH (08:19)
[2019-07-21] MEDS: COLACE PO SCH ×2 (08:19→23:44)
[2019-07-21] MEDS: CELEBREX PO SCH ×2 (08:19→23:44)
[2019-07-21] MEDS: PATIENT'S OWN MED PO SCH ×3 (08:19→18:16)
[2019-07-21] MEDS: PERIDEX MT SCH ×2 (08:22→23:45)
[2019-07-21] MEDS ORDERED: ATIVAN IV PRN (09:34)
[2019-07-21] MEDS ORDERED: BENADRYL IV PRN (09:35)
[2019-07-21] MEDS: DULERA 100 MCG/5 MCG INHALER INH SCH ×2 (11:11→19:30)
--- NOTE | 2019-07-21 17:30 | ORTHOPAEDICS PROGRESS NOTE ---
DATE: 07/21/2019 SUBJECTIVE DATA: Ms. Veras is seen postop day 2 of her total knee arthroplasty. She reports that she has had a significant pain increase today. She also states she is developing some redness around her knee. OBJECTIVE DATA: There is mild redness around the pereneo tape of the knee. There is some tenderness to the calf region. There is good sensation to the lower extremities. There is good pedal pulses. There is good capillary refill in the toes. ASSESSMENT: Degenerative joint disease right knee with right total knee arthroplasty and increased pain. PLAN: We will plan to obtain ultrasound of the right lower extremity. We will go and give her some IV Benadryl to see if we can help with this reaction she is having. We will also give her some Ativan to help with her anxiety. We will check back on her in the morning and see if she is ready for discharge. We will also to see if they can increase her pain medicine some to get her pain under control. Dictated by PURNIMA Fofana for Madhu Mary MD cc: PURNIMA Fofana MD [facility]
[2019-07-21] MEDS: NS 1,000 ML IV SCH (18:17)
[2019-07-22] MEDS: OXY IR PO PRN (00:51)
[2019-07-22] MEDS: ALBUTEROL NEB INH SCH ×2 (03:10→10:33)
[2019-07-22] MEDS: ULTRAM PO SCH ×2 (03:16→05:53)
[2019-07-22] MEDS: HUMULIN R SUBQ SCH ×2 (07:00→10:53)
[2019-07-22] MEDS: PROTONIX PO SCH (07:00)
[2019-07-22 07:22] LABS: HEMOGLOBIN 12.4 g/dL (12.0-16.0)
[2019-07-22 08:28] VITALS: BP 119/79
[2019-07-22] MEDS: NS 1,000 ML IV SCH (08:38)
[2019-07-22] MEDS: PERIDEX MT SCH (08:38)
[2019-07-22] MEDS: SINGULAIR PO SCH (08:38)
[2019-07-22] MEDS: EFFEXOR XR PO SCH (08:38)
[2019-07-22] MEDS: CELEBREX PO SCH (08:38)
[2019-07-22] MEDS: GLUCOPHAGE PO SCH (08:38)
[2019-07-22] MEDS: ASPIRIN PO SCH (08:38)
[2019-07-22] MEDS: ZYRTEC PO SCH (08:39)
[2019-07-22] MEDS: PEPCID PO SCH (08:39)
[2019-07-22] MEDS: NEURONTIN PO SCH (08:39)
[2019-07-22] MEDS: COLACE PO SCH (08:44)
[2019-07-22] MEDS ORDERED: FLU VACCINE IM ONE (09:19)
[2019-07-22] MEDS ORDERED: PNEUMOVAX 23 IM ONE (09:30)
[2019-07-22] MEDS: DULERA 100 MCG/5 MCG INHALER INH SCH (10:37)
[2019-07-22] MEDS: PATIENT'S OWN MED PO SCH (10:51)
--- NOTE | 2019-07-22 16:02 | Extremity Venous Study ---
PROCEDURE NAME: Venous U/S Right Leg - 07/21/2019 SALES PROFESSIONAL BILINGUAL: Clifford. REQUEST PROVIDER: Devaughn. INDICATION: Right calf pain. FINDINGS: Deep superficial veins right lower extremity were visualized along their course. All vessels appear compressible with forward flow and no evidence intraluminal thrombus. SUMMARY: No deep or superficial venous thrombosis right lower extremity. cc: MD Dayday Fields CRNP John R. Riehl, MD
--- NOTE | 2019-07-22 21:20 | DISCHARGE SUMMARY ---
ADMISSION DATE: 07/19/2019 DISCHARGE DATE: 07/22/2019 ADMITTING DIAGNOSIS: Degenerative joint disease right knee. DISCHARGE DIAGNOSIS: Degenerative joint disease right knee with right total knee arthroplasty. PRINCIPAL PROCEDURE: Right total knee arthroplasty. ALLERGIES: Include latex, natural rubber, penicillin, oxycodone, acetaminophen as well as tape. HOSPITAL COURSE: The patient was taken to the operating room on 07/19/2019 where she underwent a right total knee arthroplasty. She tolerated procedure well. She was transferred to the surgical floor. Routine post antibiotics were administered. She was then transitioned to oral pain medications. Mechanical and chemical and DVT prophylaxis were initiated. Physical therapy was started and the patient walked about 100 feet without difficulty. She was able to spontaneously void. Postop day 1 she was having some increased pain and some mild nausea so we kept her in the hospital. On postop day 2 she started developing a small reaction to the dressing and some swelling of the leg. We ordered a venous Doppler which is yet to result. We also placed her on Benadryl for this and it has seemed to improve. Her incision remained clean, dry and intact during hospital course. There was some mild pain with calf squeeze yesterday and that was another reason for the ultrasound. As soon as the ultrasound comes back and shows negative then she will be ready to be discharged today, 07/22/2019. If it is positive we will keep her here and consult the hospitalist. PAST MEDICAL HISTORY: Includes anxiety, asthma, COPD, depression, DVT, rheumatoid arthritis. DISPOSITION: She will be discharged home with home therapy as long as her ultrasound is negative. FOLLOWUP: She is to follow up with Dr. Mary in about 10 days for recheck and refills on her medications and to set up outpatient therapy. DISCHARGE INSTRUCTIONS: Home with home therapy at this time. Dictated by PURNIMA Fofana for Madhu Mary MD cc: PURNIMA Fofana MD
== END 2019-07-22 13:52 | disposition home or self-care (01) | DRG 470 ==
LOC: OPS 06:51 → SURHOLD 06:51 → DIRADM 06:51 → 4N 08:56
PROVIDERS: ADMIT Orthopaedic Surgery Adult Reconstructive Orthopaedic Surgery; ATTEND Orthopaedic Surgery Adult Reconstructive Orthopaedic Surgery

== ENCOUNTER 2020-01-03 09:39 | Inpatient (IN) ==
[2020-01-03] MEDS ORDERED: DUONEB (A & A) INH PRN (10:49)
--- NOTE | 2020-01-03 12:13 | Diag Imaging Result Doc PS360 ---
EXAM: CHEST-PORTABLE HISTORY: SOB TECHNIQUE: Single view COMPARISON: 12/09/2018 FINDINGS: The lungs are well expanded. The heart is not enlarged. The vessels are not distended. There are no infiltrates. No effusion identified. IMPRESSION: Negative exam. Electronically signed by Ashish Pearson 01/03/2020 12:11 PM
[2020-01-03 13:13] LABS: HEMATOCRIT 41.1 % (37.0-47.0); HEMOGLOBIN 12.7 g/dL (12.0-16.0); MCH 27.5 PG (27-31); MCHC 30.9 g/dL (33-37); MPV 9.2 FL (7.4-10.4); RBC 4.62 XMIL (4.2-5.4); RDW 14.4 % (11.5-14.5); WBC 7.48 X1000 (4.8-10.8)
[2020-01-03 13:18] LABS: HEMOGLOBIN A1C 6.5 % (4.8-6.0)
[2020-01-03] MEDS: AZACTAM 1 GM in NS 50 ML IV SCH ×2 (13:29→21:34)
[2020-01-03] MEDS: SOLU-MEDROL IV SCH ×3 (13:29→21:35)
[2020-01-03] MEDS: HUMULIN R SUBQ SCH ×3 (13:29→21:35)
[2020-01-03] MEDS: PROTONIX IV SCH (13:30)
[2020-01-03] MEDS: LOVENOX SUBQ SCH (13:30)
[2020-01-03] MEDS: SODIUM CHLORIDE 0.9% INJ SCH (13:30)
[2020-01-03 13:34] LABS: AGAP 12; ALB/GLOB RATIO 1.7; ALBUMIN 3.9 g/dL (3.5-5.0); ALKALINE PHOSPHATASE 83 U/L (32-104); BUN 14 mg/dL (8-22); C REACTIVE PROT QUANT 3.53 mg/L (0.00-5.00); CHLORIDE 100 mmol/L (98-107); CK PROFILE 42 U/L (24-173); COSMO 278; CREATININE 0.6 mg/dL (0.5-0.9); ESTIMATED GFR > 60; GLUCOSE 99 mg/dL (70-104); GOT 33 U/L (10-30); GPT 45 U/L (10-36); POTASSIUM 4.3 mmol/L (3.5-5.1); SODIUM 139 mmol/L (136-145); TCO2 27 mmol/L (25-35); TOTAL BILIRUBIN 0.21 mg/dL (0.20-1.00); TOTAL PROTEIN 6.2 g/dL (6.3-8.3)
[2020-01-03] MEDS: LEVAQUIN 500 MG/D5W 500 MG/100 ML IVPB IV SCH (13:59)
[2020-01-03] MEDS: ZOFRAN IV PRN (16:49)
[2020-01-03] MEDS: ULTRAM PO PRN (16:49)
--- NOTE | 2020-01-03 18:10 | HISTORY AND PHYSICAL ---
CHIEF COMPLAINT: Fever, shortness of breath, cough, and wheezing. HISTORY OF PRESENT ILLNESS: She is a 69-year-old white female who came in with incessant cough. No history of asthmatic bronchitis. She has a fever of 99.2. She is markedly wheezing. She has a history of extrinsic allergic asthma, on immunotherapy before. She is already on Singulair. Given her comorbid conditions, the patient was hospitalized directly from my office for acute asthma exacerbation. She also placed in isolation to rule out COVID-19 infection. PAST MEDICAL HISTORY: 1. Bronchial asthma due to extrinsic allergies. 2. Metabolic syndrome. 3. Type 2 diabetes. 4. Hiatal hernia. 5. Hyperlipidemia. 6. Chronic back pain. 7. Migraine headaches. 8. TUGSE syndrome of right tongue. 9. History of thrombosis of internal jugular from central lines. PAST SURGICAL HISTORY: 1. Cholecystectomy. 2. Partial hysterectomy. 3. Tubal ligation. 4. Right lacrimal duct excision. 5. Excision of TUGSE from lateral tongue in 2017. 6. Status post right total knee replacement in 2019. ALLERGIES: Reported to penicillin, latex, adhesive tape. SOCIAL HISTORY: Disabled, single. 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 No smoking. No alcohol. FAMILY HISTORY: Father of heart attack at 60. Mom of stroke at 87. MEDICATIONS: Effexor 75 mg daily, albuterol every 6 hours as needed, gabapentin 300 mg 4 times daily, Singulair 10 mg daily, Protonix 40 daily, Dulera 100/5 two puffs b.i.d., metformin 500 p.o. b.i.d., Xyzal 5 mg daily,MiraLAX 17 grams daily, Benadryl as needed. HEALTH MAINTENANCE: Flu vaccine 07/22/2017, pneumococcal vaccine 23 given on 07/22/2019, pneumococcal 13 given on 08/28/2017. REVIEW OF SYSTEMS: HEENT: No headache, no vision problem. Low-grade fever. No earache. No sniffles. No sore throat. Neck: No neck pain, no goiter, no lymphadenopathy. Cardiopulmonary: Shortness of breath, cough, wheezing, dry cough. No chest pain. Breasts: No lumps in the breast. GI: No nausea, vomiting, abdominal pain. : No history of hesitancy, frequency, dysuria. No swelling of legs. Neurologic: No focal symptoms of weakness. PHYSICAL EXAMINATION: VITAL SIGNS: Height 5 feet 2 inches, weight 157 pounds. Low-grade fever, pulse 86. Vitals are stable. HEENT: TMs are normal. Nose and throat not congested. NECK: Supple. No lymphadenopathy. No goiter. CHEST: Bilateral wheezing. HEART: Sounds are regular. No murmur. ABDOMEN: Belly is soft, obese, nontender. Good bowel sounds. No peripheral edema or cyanosis. NEUROLOGIC: No obvious neurological deficits. INVESTIGATIONS: CBC: White cell count 7.4, hematocrit 41, platelets 194. SMA 7 is normal. Glucose 192. A1c 6.5. LFTs slightly elevated. CK, proBNP were normal. Chest x-ray: Negative exam. ASSESSMENT: A 69-year-old white female admitted to the hospital for acute asthma exacerbation with comorbid conditions. Rule out Coronavirus Disease 2019. PLAN: 1. Oxygen, bronchodilators, IV steroids, IV antibiotics. 2. Deep vein thrombosis and gastrointestinal prophylaxis as per the orders. 3. Reconcile home medicines. 4. Vaccinations are up to date. 5. Type 2 diabetes, on metformin. A1c is excellent. Continue on sliding scale with insulin coverage. 6. Will also give some Tessalon Perles for cough and will follow up. cc: Herve Weinstein MD MTDD
[2020-01-03 19:22] LABS: URINE SOURCE CLEAN CATCH
[2020-01-03 19:41] LABS: BILIRUBIN URINE NEGATIVE (NEGATIVE); BLOOD URINE NEGATIVE (NEGATIVE); COLOR STRAW; GLUCOSE URINE NEGATIVE (NEGATIVE); KETONE URINE NEGATIVE (NEGATIVE); LEUKOCYTES URINE NEGATIVE (NEGATIVE); NITRITE URINE NEGATIVE (NEGATIVE); PROTEIN URINE NEGATIVE (NEGATIVE); SP GRAVITY URINE 1.013; TURBIDITY URINE CLEAR (CLEAR); UROBILINOGEN URINE NORMAL (NORMAL)
[2020-01-03 19:42] LABS: UR EPITHELIAL CELLS <10 /HPF (<10); URINE BACTERIA NEGATIVE /HPF; URINE RBC <10 /HPF (<10); URINE WBC <10 /HPF (<10)
[2020-01-03] MEDS: NEURONTIN PO SCH (21:35)
[2020-01-04] MEDS: ULTRAM PO PRN ×3 (00:03→16:04)
[2020-01-04] MEDS: DULERA 100 MCG/5 MCG INHALER INH SCH ×3 (06:18→21:25)
[2020-01-04] MEDS: SOLU-MEDROL IV SCH ×3 (06:46→20:48)
[2020-01-04] MEDS: HUMULIN R SUBQ SCH ×4 (06:47→20:48)
[2020-01-04] MEDS: AZACTAM 1 GM in NS 50 ML IV SCH ×3 (06:47→20:48)
[2020-01-04] MEDS ORDERED: POLYETHYLENE GLYCOL PO SCH (09:00)
[2020-01-04] MEDS: EFFEXOR XR PO SCH (10:00)
[2020-01-04] MEDS: NEURONTIN PO SCH ×4 (10:00→20:48)
[2020-01-04] MEDS: GLUCOPHAGE PO SCH ×2 (10:00→16:08)
[2020-01-04] MEDS: CLARITIN PO SCH (10:00)
[2020-01-04] MEDS: SINGULAIR PO SCH (10:00)
[2020-01-04] MEDS: TESSALON PO PRN ×2 (10:01→16:03)
[2020-01-04] MEDS: LOVENOX SUBQ SCH (13:46)
[2020-01-04] MEDS: PROTONIX IV SCH (13:47)
[2020-01-04] MEDS: SODIUM CHLORIDE 0.9% INJ SCH (13:48)
[2020-01-04] MEDS: MIRALAX PO SCH (14:54)
[2020-01-04] MEDS: LEVAQUIN 500 MG/D5W 500 MG/100 ML IVPB IV SCH (14:54)
[2020-01-04] MEDS: ZOFRAN IV PRN (16:03)
[2020-01-04] MEDS: VENTOLIN HFA INH SCH ×2 (16:10→21:25)
--- NOTE | 2020-01-04 18:37 | PROGRESS NOTE ---
DATE: 01/04/2020 SUBJECTIVE: The patient still had some wheezing and coughing last night. Waiting for COVID-19 test results. EXAM: Vital signs: Afebrile vitals are stable. Lungs: Slightly wheezing. Heart: Distant heart sounds. Physical exam no change. Scar in the right knee noted. LABS: Blood sugars 236. ASSESSMENT AND PLAN: 1. Acute asthma exacerbation with bronchitis pending Coronavirus Disease 2018 and continue present IV antibiotic steroids. 2. Diabetes is stable. 3. History of coronary artery disease, stable. 4. Continue deep vein thrombosis and gastrointestinal prophylaxis as per order sheet. LEVEL OF DOCUMENTATION: 25 minutes. cc: Herve Weinstein MD
[2020-01-05] MEDS: VENTOLIN HFA INH SCH ×4 (04:25→20:00)
[2020-01-05] MEDS: AZACTAM 1 GM in NS 50 ML IV SCH ×2 (06:52→14:23)
[2020-01-05] MEDS: HUMULIN R SUBQ SCH ×4 (06:52→22:52)
[2020-01-05] MEDS: SOLU-MEDROL IV SCH ×3 (06:52→22:52)
[2020-01-05] MEDS: CLARITIN PO SCH ×2 (07:43→08:16)
[2020-01-05] MEDS: SINGULAIR PO SCH ×2 (07:43→08:16)
[2020-01-05] MEDS: MIRALAX PO SCH ×2 (07:43→08:16)
[2020-01-05] MEDS: EFFEXOR XR PO SCH ×2 (07:43→08:16)
[2020-01-05] MEDS: GLUCOPHAGE PO SCH ×2 (07:43→16:06)
[2020-01-05] MEDS: DULERA 100 MCG/5 MCG INHALER INH SCH ×2 (09:20→19:56)
[2020-01-05] MEDS: NEURONTIN PO SCH ×4 (09:24→22:51)
[2020-01-05] MEDS ORDERED: GLYCERIN ADULT PR ONE (09:51)
[2020-01-05] MEDS: PROTONIX IV SCH (14:25)
[2020-01-05] MEDS: SODIUM CHLORIDE 0.9% INJ SCH (14:25)
[2020-01-05] MEDS: LOVENOX SUBQ SCH (14:25)
[2020-01-05] MEDS: LEVAQUIN 500 MG/D5W 500 MG/100 ML IVPB IV SCH (15:06)
--- NOTE | 2020-01-05 18:09 | PROGRESS NOTE ---
DATE: 01/05/2020 SUBJECTIVE: The patient is doing better. COVID 19 was negative, and complains of constipation. IV access is problematic. OBJECTIVE: Vitals are stable. Physical exam with no change. ASSESSMENT AND PLAN: 1. Acute asthma exacerbation. 2. Type 2 diabetes. 3. Incessant cough. 4. Constipation. PLAN OF CARE: 1. Laxatives. 2. Discontinue isolation. 3. Continue present treatment if stable. 4. We will discharge in the morning. LEVEL OF DOCUMENTATION: 25 minutes. cc: Herve Weinstein MD
[2020-01-06] MEDS: ULTRAM PO PRN ×2 (00:29→08:42)
[2020-01-06] MEDS: AZACTAM 1 GM in NS 50 ML IV SCH ×2 (00:29→06:24)
[2020-01-06] MEDS: VENTOLIN HFA INH SCH ×2 (03:36→08:46)
[2020-01-06] MEDS: SOLU-MEDROL IV SCH (06:24)
[2020-01-06] MEDS: HUMULIN R SUBQ SCH (06:48)
[2020-01-06 07:52] VITALS: BP 166/101
[2020-01-06] MEDS: GLUCOPHAGE PO SCH (08:40)
[2020-01-06] MEDS: EFFEXOR XR PO SCH (08:41)
[2020-01-06] MEDS: TESSALON PO PRN (08:42)
[2020-01-06] MEDS: CLARITIN PO SCH (08:43)
[2020-01-06] MEDS: SINGULAIR PO SCH (08:43)
[2020-01-06] MEDS: NEURONTIN PO SCH (08:43)
[2020-01-06] MEDS: MIRALAX PO SCH (08:44)
[2020-01-06] MEDS: DULERA 100 MCG/5 MCG INHALER INH SCH (08:46)
--- NOTE | 2020-01-07 20:18 | DISCHARGE SUMMARY ---
ADMISSION DATE: 01/03/2020 DISCHARGE DATE: 01/06/2020 DISCHARGING DIAGNOSIS: Acute asthma exacerbation. SECONDARY DIAGNOSES: 1. Metabolic syndrome. 2. Type 2 diabetes. 3. Hiatal hernia. 4. Hyperlipidemia. 5. Chronic back pain. 6. Migraine headaches. 7. Status post right knee replacement. 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 BRIEF HISTORY: Please see the H and P that was done on 01/03/2020. In brief, she is a 69-year- old white female who came to my office with a fever, cough, congestion, and wheezing. The patient has known history of bronchial asthma due to allergies. The patient was placed in isolation. COVID-19 test was negative. The patient was given oxygen, bronchodilators, IV steroids, and IV antibiotics and subsequently she got better. Rest of the hospital course was uneventful. LABORATORIES: CBC is normal. SMA-7 is normal. Hemoglobin A1c 6.5. LFTs are slightly high. Urinalysis is clear. Coronavirus PCR test was negative. STUDIES: Chest x-ray was stable. DISCHARGING INSTRUCTIONS: The patient was discharged home with the following instructions : 1. Effexor 75 mg daily. 2. Albuterol nebulizers q. 6. 3. Gabapentin 300 four times a day has been stopped. 4. Singulair 10 mg daily. 5. Protonix 40 daily. 6. Dulera 100/5 two puff twice a day. 7. Metformin 500 p.o. b.i.d. 8. Xyzal 5 mg daily. 9. MiraLAX 17 g p.o. b.i.d. 10. Zithromax as directed. 11. Medrol Dosepak. 12. Tessalon Perles. 13. The patient received pneumococcal 13 vaccine 08/28/2017 and 23 was given 07/22/2019. 14. Follow up in my office next week. cc: Herve Weinstein MD
== END 2020-01-06 10:00 | disposition home or self-care (01) | DRG 203 ==
LOC: DIRADM 09:39 → OBSVTOIN 09:39 → INTOOBSV 09:39 → 4N 10:50
PROVIDERS: ADMIT Internal Medicine; ATTEND Internal Medicine